=== PATIENT | female | born 1970 | race Caucasian/White ===

== ENCOUNTER 2022-12-12 05:04 | Observation (INO) ==
--- NOTE | 2022-11-20 12:58 | PAT Medication Instructions ---
Medication Instructions Date of Service November 20, 2022 Home Medications Medication Instructions Recorded CPAP Supplies #1 ea 02/22/19 CPAP Machine #1 ea 03/10/19 losartan 25 mg tablet 25 mg PO DAILY albuterol sulfate 2.5 mg/3 mL (0.083 %) solution for nebulization 2.5 mg inhalation Q4H PRN shortness of breath or wheezing albuterol sulfate 90 mcg/actuation aerosol inhaler 2 puffs inhalation Q4H PRN shortness of breath or wheezing cholecalciferol (vitamin D3) 1,250 mcg (50,000 unit) capsule 50,000 unit PO MONTHLY diltiazem HCl 120 mg capsule,extended release 24 hr (Cartia XT) 120 mg PO DAILY fluticasone fur. 200 mcg-umeclid 62.5 mcg-vilant 25 mcg inhalat.powder (Trelegy Ellipta) 1 inh inhalation DAILY paroxetine HCl 30 mg tablet 30 mg PO QAM pravastatin 40 mg tablet 40 mg PO QAM DO NOT take the morning of surgery losartan 25 mg tablet 25 mg PO DAILY cholecalciferol (vitamin D3) 1,250 mcg (50,000 unit) capsule 50,000 unit PO MONTHLY Take morning of surgery With a small sip of water, OTHERWISE NOTHING TO EAT OR DRINK AFTER MIDNIGHT: albuterol sulfate 2.5 mg/3 mL (0.083 %) solution for nebulization 2.5 mg inhala tion Q4H PRN shortness of breath or wheezing (if needed) albuterol sulfate 90 mcg/actuation aerosol inhaler 2 puffs inhalation Q4H PRN shortness of breath or wheezing (use if needed; please bring rescue inhaler with you to hospital day of surgery if possible) diltiazem HCl 120 mg capsule,extended release 24 hr (Cartia XT) 120 mg PO DAILY fluticasone fur. 200 mcg-umeclid 62.5 mcg-vilant 25 mcg inhalat.powder (Trelegy Ellipta) 1 inh inhalation DAILY paroxetine HCl 30 mg tablet 30 mg PO QAM pravastatin 40 mg tablet 40 mg PO QAM Take evening before surgery albuterol sulfate 2.5 mg/3 mL (0.083 %) solution for nebulization 2.5 mg inhalation Q4H PRN shortness of breath or wheezing (if needed) albuterol sulfate 90 mcg/actuation aerosol inhaler 2 puffs inhalation Q4H PRN shortness of breath or wheezing (if needed) Other Notes If you have any questions please call us at [phone] or [phone] or [phone] or [phone]
--- NOTE | 2022-11-27 09:26 | Anesthesiology Consultation ---
Date of Service November 27, 2022 Assessment & Plan (1) Encounter for pre-operative examination: - Infectious disease screening: Per assessment on 11/27/22: No known infectious disease contacts or current infectious disease symptoms. No noted Covid positive test result in past 90 days. - Outpatient joint assessment: Pt currently scheduled for inpatient pathway. If surgeon requests review for outpatient joint pathway, patient is not recommended candidate for outpatient joint program from anesthesia standpoint. - Cardiology visit (05/30/22): " Patient presents for evaluation of hypertens ion.. She reports nonprogressive functional class II SOB and fatigue.. Continue current meds.. Diet and exercise were discussed with patient.. Check BP on regular basis.. Encouraged to join an exercise and weight loss program" - Abnormal CBC: Preop labs performed 11/27/22 note absolute lymphocytosis. Per lab report, "Absolute lymphocytosis in patient >50 years old. If persistent, consider evaluation for CLL (flow cytometry)" > Note written to PCP regarding abnormal preop labs- Awaiting response ([facility]). Chart Review Chart Review: Patient seen in Pre Admission Testing Teaching & Discussion Pre-Anesthesia Teaching/Discussion Notes: Instructed NPO after midnight before surgery,except medications with 15 cc of water. Medication instructions provided according to the PAT guidelines. History Surgery Operation Date: 12/12/22 10:40 Proposed Procedures p Left Total Hip Arthroplasty - Khadar Mccabe MD Height/Weight Height: 5 ft 4 in Weight: 111.8 kg Allergies Allergy/AdvReac Type Severity Reaction Status Date / Time codeine Allergy Mild Abdominal Verified 11/25/22 15:31 cramps isosorbide Allergy Unknown Headache, Verified 11/25/22 15:31 nausea Medications Home Medications Medication Instructions Recorded Confirmed Last Taken CPAP Supplies #1 ea 02/22/19 09/04/22 Unknown losartan 25 mg tablet 25 mg PO DAILY #30 tabs 02/28/19 11/20/22 Unknown CPAP Machine #1 ea 03/10/19 09/04/22 Unknown albuterol sulfate 2.5 mg/3 mL 2.5 mg inhalation Q4H PRN 05/22/19 11/20/22 Unknown (0.083 %) solution for nebulization shortness of breath or wheezing albuterol sulfate 90 mcg/actuation 2 puffs inhalation Q4H PRN 05/22/19 11/20/22 Unknown aerosol inhaler shortness of breath or wheezing cholecalciferol (vitamin D3) 1,250 50,000 unit PO MONTHLY 07/03/22 11/20/22 Unknown mcg (50,000 unit) capsule diltiazem HCl 120 mg 120 mg PO DAILY 07/03/22 11/20/22 Unknown capsule,extended release 24 hr (Cartia XT) fluticasone fur. 200 mcg-umeclid 1 inh inhalation DAILY 07/03/22 11/20/22 Unknown 62.5 mcg-vilant 25 mcg inhalat.powder (Trelegy Ellipta) paroxetine HCl 30 mg tablet 30 mg PO QAM 11/20/22 11/20/22 Unknown pravastatin 40 mg tablet 40 mg PO QAM 11/20/22 11/20/22 Unknown Past Medical History Medical History Allergic rhinitis Anxiety Arthritis Arthritis Following with [facility], last visit 08/2022- per visit, remote hx no chio of rheumatoid arthritis but "Her current features of predominantly DIP disease is consistent with osteoarthritis. I do not identify pronounced synovitis or effusions that would be consistent with active inflammatory arthritis such as rheumatoid" Arthritis of left hip Asthma COPD (chronic obstructive pulmonary disease) Environmental allergies History of COVID-2020- sore throat, runny nose; resolved HTN (hypertension) Hyperlipidemia Morbid obesity Osteoarthritis Sleep apnea No device Exercise / Class Metabolic Activity III < 4 Walking/Shop/Light housework Past Family History Family History Father Cardiac disorder Other Raynaud's phenomenon Rheumatoid arthritis Past Surgical History Surgical History History of cardiac cath 2014- no stents Follows with Dr. Kennedy History of ear surgery History of endometrial ablation History of esophagogastroduodenoscopy (EGD) Hx of colonoscopy Nausea and vomiting after administration of anesthetic agent Past Anesthesia History No Hx of Anesthesia Complications and No Family Hx of Anesthesia Complications History of PONV History of PONV and Hx of Motion Sickness Social History Smoking Status: Former smoker Do You Dip or Chew Tobacco: No Smoking End Date: Quit 1996 Hx Alcohol Use: Yes alcohol intake frequency: holidays/special occasions only Hx Substance Use: No substance use type: does not use Review of Systems Patient denies chest pain, shortness of breath, fever, chills, cough, wheezing, palpitations. Physical Exam Vital Signs VITALS BP 131/80 P 62 TEMP 98.1 SP02 97%RA RESP 16 PHYSICAL Full cervical extension range of motion. Full TMJ range of motion. TMD 4 finger breaths Mallampati Score 3 Dentition: Right upper side missing Lungs: clear throughout to auscultation Cardiac: regular rate and rhythm, no murmurs noted Spine: normal Carotid arteries: negative bruit Extremities: no LE edema thick neck Lab Results Anesthesia Preop Results Results Anesthesia Widget: WBC 13.89 K/ul (4.8-10.8) H 11/27/22 Hgb 12.7 g/dl (12.0-16.0) 11/27/22 Hct 40.3 % (37.0-47.0) 11/27/22 Plt 267 K/uL (130-400) 11/27/22 Na 139 mmol/L (136-145) 11/27/22 K 3.8 mmol/L (3.5-5.1) 11/27/22 Cl 105 mmol/L (98-107) 11/27/22 CO2 30 mmol/L (21-32) 11/27/22 BUN 25 mg/dl (6-23) H 11/27/22 Creat 0.76 mg/dl (0.6-1.2) 11/27/22 Glucose Level 89 mg/dl (70-99(Fasting)) 11/27/22 PT 10.5 Seconds (9.0-12.0) 11/27/22 PTT 23.6 Seconds (21.0-31.0) 11/27/22 INR 1.0 (0.9-1.1) 11/27/22 Blood Type O Positive 11/27/22 Antibody Screen NEGATIVE 11/27/22 Testing Electrocardiogram Date: 11/27/22 SB at 57bpm. NS TWA. Chest X-Ray Date: 11/27/22 FINDINGS: Cardiac silhouette is normal in size. No pleural effusions. No pneumothorax. Small linear scarlike density within the lingula best seen on the lateral view. Otherwise, lungs are clear. Mild degenerative changes within the thoracic spine. IMPRESSION: No acute process. Echocardiogram Date: 10/01/21 EF 50-55%. Mild LAE and LV dilatation. Normal RA and RV size. LV systolic function is normal. No wall motion abnormalities. Diastolic dysfunction. Mild aortic and mitral valve sclerosis. Trace MR/TR/PI. Other Testing 24 hour hospital monitor Date: 10/01/21 Predominant rhythm is normal sinus rhythm with an average heart rate of 71 bpm (range 47 to 101 bpm). AV conduction was normal. No pauses over 2.0 seconds. Intraventricular conduction was normal. Rare PACs. Rare PVCs. There were NST changes noted. Patient did not note any symptoms during the monitoring period.
[2022-12-12] MEDS ORDERED: ACETAMINOPHEN 500 MG TAB PO SCH (06:00)
[2022-12-12] MEDS ORDERED: ceFAZolin 2000MG 2,000 MG/15 ML SYR IV SCH (06:00)
[2022-12-12] MEDS ORDERED: CeleBREX 200 MG CAP PO SCH (06:00)
[2022-12-12] MEDS ORDERED: METOCLOPRAMIDE HCL 10 MG TABLET PO SCH (06:00)
[2022-12-12] MEDS ORDERED: TRANEXAMIC ACID 1,000 MG **IV Pre-op IV SCH (06:00)
[2022-12-12] MEDS ORDERED: Scopolamine 1 MG TDSY TD SCH (06:00)
[2022-12-12] MEDS ORDERED: FAMOTIDINE 20 MG TAB PO SCH (06:00)
[2022-12-12] MEDS ORDERED: dexAMETHasone**PF** 10 MG/ML VIAL IV SCH (06:00)
[2022-12-12] MEDS ORDERED: LR 60ML/HR IV SCH (06:00)
[2022-12-12] MEDS ORDERED: LR 500ML BOLUS, THEN 15ML/HR IV SCH (06:00)
[2022-12-12] MEDS ORDERED: BUPIVACAINE 0.5 % 5 MG/1 ML PF 10ML VIAL ONE (06:24)
[2022-12-12] MEDS ORDERED: BUPIVACAINE/EPINEPHRINE 0.5% MPF 1:200,000 30 ML VIAL ONE (06:32)
[2022-12-12] MEDS ORDERED: PROPOFOL IV EMULSION 10 MG/ML 20 ML VIAL IV ONE ×2 (06:37→08:08)
[2022-12-12] MEDS ORDERED: MIDAZOLAM HCL 1 MG/ML 2ML VIAL ONE (06:37)
[2022-12-12] MEDS ORDERED: LIDOCAINE 2% 2 ML VIAL/AMP(20MG/ML) INFIL ONE (06:37)
[2022-12-12] MEDS ORDERED: ONDANSETRON INJ 2 MG/ML 2 ML VIAL ONE (06:37)
[2022-12-12] MEDS ORDERED: MoRPHine SULFATE PF 1 MG/ML 10 ML AMP/VIAL ONE (06:37)
--- NOTE | 2022-12-12 06:46 | History & Physical Bridge Note ---
Date of Service December 12, 2022 History & Physical Bridge Note I have examined the patient, reviewed the History & Physical and in the interval since the performance of the History & Physical I have noted the following changes of clinical significance: no changes noted
[2022-12-12] MEDS ORDERED: KETAMINE 50 MG/5 ML SYRINGE ONE (07:05)
[2022-12-12] MEDS ORDERED: ATROPINE SULFATE 0.1 MG/ML 10ML SYR IV PRN (08:04)
[2022-12-12] MEDS ORDERED: ePHEDrine sulfate 50 MG/ML AMP IV PRN ×2 (08:04→09:20)
--- NOTE | 2022-12-12 08:53 | Operative Report ---
PG Post Operative Report Pre & Post Diagnosis Operation Date: 12/12/22 07:00 Pre-Op Diagnosis: Left Hip Advanced Degenerative Joint Disease Post-Op Diagnosis: Left Hip Advanced Degenerative Joint Disease I identified the patient and participated in the time-out.: Yes Procedure Operation Date: 12/12/22 07:00 Actual Procedures p Left Total Hip Arthroplasty--Uncemented(Left) - Khadar Mccabe MD Surgeon Khadar Mccabe MD Can Inspector Kaz Dailey PA-C Estimated Blood Loss 200 Findings Consistent with Post-Op Diagnosis Operative findings were advanced left hip DJD. She had extensive grade 4 [id number] disease of the femoral head and acetabulum. Not much in the way of osteophytes. Moderate-sized joint effusion. Very large soft tissue envelope around her hip area. Specimens Left femoral head sent for pathology Anesthesia Type Spinal MAC Complications none Disposition Accompanied Patient To Recovery: No Indications Patient is a 52-year-old female said a several year history of increasing left hip pain discomfort describes gotten worse over time. Is been through extensive conservative treatment became less successful over time. X-rays show advanced and progressive hip arthritis. She elected proceed with total hip arthroplasty. Description of Procedure Operative implants consist of: 1 Biomet G7 size 52 mm acetabular shell. 2. [place] eliminator. 3. Highly cross-linked polyethylene liner with a 52 mm outer diam and 36 mm inner diameter. 4. 6.5 cancellous acetabular screws 1 at 35 mm in length by 20 mm length. 5. DePuy Karaya size 10 KLA femoral stem. 6. +5/36 mm ceramic articular ball. The patient was taken the operating, identified, and placed on the operating table supine position architectures were properly padded. IV antibiotics tried by anesthesia team. Spinal anesthetic had been implemented holding area. Reed catheter was placed in sterile fashion. Patient then placed in the right lateral decubitus position. Next a roll was placed. A Stulberg hip positioner was used for positioning. The left hip and leg were then prepped and draped in usual sterile fashion. A posterolateral approach to the left hip was then performed to a curvilinear incision centered over the greater trochanter. Sharp dissection Through subcutaneous tissue down to the IT band gluteal fascia. The subcutaneous tissue layer was very thick. The IT band gluteal fascia incised longitudinally in line with skin incision. The underlying greater trochanteric bursa was excised. The piriformis and external rotators along with the posterior hip joint capsule were then released and the posterior aspect hip as a single layer. Great care was taken throughout the procedure. The sciatic nerve at all times. Hip was internally rotated and dislocated. Femoral neck osteotomy cut was made with Final Cut about 10 mm above the lesser trochanter. Femoral head was removed and sent for pathology. The femur was retracted anteriorly. Attention drawn the acetabulum. The acetabulum was excised. The pulmonary fat was excised. Sequential reaming the acetabular was then performed again with a size 43 and progressing up to 49. I did ream some with a 50 reamer. We then placed a 52 mm Biomet G7 acetabular shell in about 40 degrees lateral opening and 20 degrees of anteversion. We fixed with two 6.5 screws. A trial liner was placed. Attention drawn the femur. The proximal femur was entered with a [employer] cutter followed by canal finder. Then broached beginning size 8 and progressing up to 10. She got excellent fit of the tendon. I trialed the hip and the +5 articular ball provided appropriate stability and full extension X rotation and flexion to 90 degrees internal Tatian over 50 degrees. There is still unilobar soft tissue laxity. I did not feel like we probably lengthen her a little bit but she was little bit short to start out. Leg lengths seem equal. We elect to place these implants. All trial implants were removed. [place] eliminator was placed but highly cross- linked polyethylene liner was placed. A +10 KLA femoral stem was impacted in position. +5/36 mm ceramic articular ball was placed. Hip was located once again found to be stable. Attention drawn to closing. Wounds irrigated cosigns pulsatile lavage solution. I did inject locally with 60 cc of half percent Marcaine with epinephrine. The posterior capsule and external rotators were then repaired through drill in the posterior trochanter with #2 Tycron suture. The IT band gluteal fascia then closed as a single layer with #1 PDS suture in a running fashion with subcutaneous tissue then closed with 2 layers the deep layer #2 Vicryl suture and subcutaneous tissues with 2 Dexon suture in a buried interrupted fashion. Skin was closed skin leta. Leg was then cleaned and dried. A Prevena VAC dressing was applied due to the very thick soft tissue envelope. Patient then transferred to the recovery room in stable condition. Patient tolerated the procedure well and there were no complications. Kaz Dailey, my physician fws faculty assistant, was present for the entire procedure. His assistance was essential and required for appropriate patient positioning, prepping and draping, surgical exposure, performing the technical details of the operation, placement the implants, closure of the wound, and placement of the sterile bandage. I attest to the content of the Intraoperative Record and any orders documented therein. Any exceptions are noted below.
[2022-12-12] MEDS ORDERED: diphenhydrAMINE 50 MG/ML VIAL IV PRN (09:20)
[2022-12-12] MEDS ORDERED: ONDANSETRON INJ 2 MG/ML 2 ML VIAL IV PRN ×2 (09:20→10:56)
[2022-12-12] MEDS ORDERED: LACTATED RINGER'S 500 ML IV PRN (09:20)
[2022-12-12] MEDS ORDERED: PROMETHAZINE HCL 25 MG in SODIUM CHLORIDE 0.9% 50 ML IV PRN (09:20)
[2022-12-12] MEDS ORDERED: NALOXONE HCL 1 MG in SODIUM CHLORIDE 0.9% 1,000 ML IV PRN (09:20)
[2022-12-12] MEDS ORDERED: MoRPHine SULFATE PF 1 MG/ML 10 ML AMP/VIAL INT SPINAL ONE (09:20)
[2022-12-12] MEDS ORDERED: NALBUPHINE HCL INJ 10 MG/ML AMP IV PRN (09:20)
[2022-12-12] MEDS ORDERED: NALOXONE HCL 0.4 MG/1 ML VIAL/CARP IV PRN ×2 (09:20→10:56)
[2022-12-12] MEDS ORDERED: NALOXONE HCL 0.08 MG in SYRINGE 1.8 ML IV PRN (09:20)
--- NOTE | 2022-12-12 09:23 | Anesthesiology Progress Note ---
Date of Service December 12, 2022 Anesthesia Post Procedure Vital Signs Vital Signs: Temp Pulse Resp BP Pulse Ox O2 Del Method O2 Flow Rate 12/12/22 09:00 65 14 109/51 L 100 Oxymask 1 12/12/22 09:10 36.5 C 70 13 105/82 93 Room Air 12/12/22 08:50 75 16 104/60 98 Oxymask 3 12/12/22 08:40 36.6 C 81 12 105/63 95 Oxymask 5 12/12/22 05:32 36.6 C 66 20 158/84 H 99 Room Air Pain Intensity Left Hip: Pain Intensity: 0 Transfer of Care Handoff Completed per policy Notes Mental Status: alert / awake / arousable Patient Amnestic to Procedure: Yes Nausea / Vomiting: adequately controlled Pain: adequately controlled Airway Patency, RR, SpO2: stable & adequate BP & HR: stable & adequate Hydration State: stable & adequate Neuraxial Anesthesia: was administered and sensory block is resolving Anesthetic Complications: no major complications apparent
[2022-12-12] MEDS ORDERED: SODIUM CHLORIDE 0.9% 1,000 ML IV SCH (09:30)
[2022-12-12] MEDS ORDERED: NO NARCOTICS OR SEDATIVES SCH (09:30)
[2022-12-12] MEDS ORDERED: DC INTRASPINAL MORPHINE SCH (09:30)
[2022-12-12] MEDS ORDERED: ALBUTEROL HFA 8 GM INHALER INH PRN (10:56)
[2022-12-12] MEDS ORDERED: SENNA 8.6 MG TAB PO SCH ×2 (10:56→21:00)
[2022-12-12] MEDS ORDERED: bisacodyL 10 MG SUPP PR PRN (10:56)
[2022-12-12] MEDS ORDERED: METOCLOPRAMIDE HCL INJ 5 MG/ML 2 ML VIAL IV PRN (10:56)
[2022-12-12] MEDS ORDERED: ALUMINUM/MAGNESIUM SUSP 30 ML UDC PO PRN (10:56)
[2022-12-12] MEDS ORDERED: ALBUTEROL 0.083% NEBU SOLN 3 ML VIAL INH PRN (10:56)
[2022-12-12] MEDS ORDERED: MAGNESIUM HYDROXIDE SUSP 30 ML UDC PO PRN (10:56)
[2022-12-12] MEDS: DOCUSATE SODIUM 100 MG CAP PO SCH ×2 (11:34→19:58)
[2022-12-12] MEDS: MULTIVITAMIN TAB PO SCH (11:34)
[2022-12-12] MEDS: KETOROLAC 30 MG/ML VIAL IV SCH ×3 (11:36→23:36)
[2022-12-12] MEDS: ASPIRIN 81 MG ECTAB PO SCH ×2 (11:41→20:00)
[2022-12-12] MEDS: PRAVASTATIN SOD 40 MG TAB PO SCH (11:43)
[2022-12-12] MEDS: PARoxetine HCL 20 MG TAB PO SCH (11:43)
[2022-12-12] MEDS: dilTIAZem HCL 120 MG CAPCR PO SCH (11:44)
[2022-12-12] MEDS: LOSARTAN POTASSIUM 25 MG TAB PO SCH (11:44)
[2022-12-12] MEDS ORDERED: ERGOCALCIFEROL 50,000 UNITS 1250 MCG CAP PO SCH (12:00)
--- NOTE | 2022-12-12 13:05 | XRay Report ---
SINGLE VIEW PELVIS; SINGLE VIEW LEFT HIP CLINICAL HISTORY: Postoperative examination. FINDINGS: An AP portable view of the hips and pelvis with a crosstable lateral portable view of the l eft hip are obtained. Comparison is made to study dated 07/03/2022. A bipolar left hip arthroplasty is in near-anatomic alignment. At least 2 cortical lag screws transfix the acetabular cup. No acute fra cture is identified. There are expected postoperative changes overlying the left hip including skin c lips, subcutaneous gas, and soft tissue swelling. IMPRESSION: Expected postoperative findings status post left hip arthroplasty. No acute fracture is s een. ACT 112: Negative or not required by law. Electronically signed by: Idris Arthur M.D. 12/12/2022 1:03 PM
[2022-12-12] MEDS: ACETAMINOPHEN 500 MG TAB PO SCH ×2 (14:34→19:58)
[2022-12-12] MEDS: ceFAZolin 2000MG 2,000 MG/15 ML SYR IV SCH ×2 (14:36→23:32)
[2022-12-12] MEDS: SODIUM CHLORIDE 0.9% 1,000 ML IV SCH ×2 (14:45→19:59)
[2022-12-12] MEDS ORDERED: TRANEXAMIC ACID / 0.7% NACL 1,000 MG/100 ML BAG IV SCH (14:45)
[2022-12-12] MEDS: Scopolamine CHECK PATCH PLACEMENT SCH ×2 (15:36→23:34)
[2022-12-12] MEDS: ASCORBIC ACID 500 MG TAB PO SCH (17:09)
[2022-12-13] MEDS ORDERED: HYDROmorphone INJ 0.5 MG/0.5 ML SYR IV PRN (03:20)
[2022-12-13] MEDS ORDERED: traMADol HCL 50 MG TABLET PO PRN (03:20)
[2022-12-13 06:18] LABS: Basophils # (auto) 0.01 K/uL (0.00-0.20); Basophils % (auto) 0.1 %; Hematocrit (blood only) 34.5 % (37.0-47.0); Hemoglobin 11.3 g/dl (12.0-16.0); Immature Granulocytes # (auto) 0.09 K/uL (0.01-0.20); Immature Granulocytes % (auto) 0.7 %; Lymphocytes # (auto) 1.22 K/uL (1.20-3.40); Lymphocytes % (auto) 9.6 %; Mean Corpuscular Hemoglobin 30.3 pg (25.0-34.0); Mean Corpuscular Hgb Conc 32.8 g/dL (32.0-36.0); Mean Corpuscular Volume 92.5 fL (80.0-100.0); Mean Platelet Volume 10.4 fL (9.4-12.4); Monocytes # (auto) 0.98 K/uL (0.11-0.59); Monocytes % (auto) 7.7 %; Neutrophils # (auto) 10.46 K/uL (1.40-6.50); Neutrophils % (auto) 81.9 %; Platelet Count 212 K/uL (130-400); RDW Coefficient of Variation 12.9 % (11.5-14.5); RDW Standard Deviation 43.8 fL (36.4-46.3); Red Blood Count 3.73 M/uL (4.20-5.40); White Blood Count 12.76 K/ul (4.8-10.8)
[2022-12-13] MEDS: KETOROLAC 30 MG/ML VIAL IV SCH (06:38)
[2022-12-13 07:04] LABS: BUN Creatinine Ratio 25.4 (10-20); Creatinine Clr Calc Pharmacy 114.2 ml/min; Est GFR (African American) 114.3 ml/min; Est GFR (Non-African American) 98.6 ml/min; Potassium 4.2 mmol/L (3.5-5.1)
--- NOTE | 2022-12-13 07:15 | Surgery Progress Note ---
Date of Service December 13, 2022 Assessment & Plan (1) Status post left hip replacement: Plan: 52-year-old female postop day 1 from left hip replacement doing well. Pain is controlled. Hips located. She is neurologically intact. Plan: 1. DVT prophylaxis including thigh-high teds, SCDs, aspirin twice a day. 2. PT OT. Weight-bear as tired. Left total hip protocol. 3. Pain control doing well with current pain regimen. 4. Disposition plan to discharge home with some home health today after PT Admission and Anticipated Discharge Date Admission Date: December 12, 2022 Subjective 52-year-old female postop day 1 from left total hip placement. She is doing well. That she has she had the best night sleep has had in a while. Pains controlled. No chest pain or shortness of breath. Not feeling dizzy or lightheaded. Feels like she is ready to go home. Physical Exam Physical Exam: Physical examination reveals a pleasant middle-age female. She is lying in bed looks quite comfortable. She awake alert and oriented. Examination left hip reveals leg lengths equal. Zara tract dressing is in place. Thigh is soft and supple. She is neurologically intact. Respiratory: normal respiratory effort, lungs clear to auscultation Cardiovascular: RRR, no murmur, no edema Gastrointestinal (Abdomen): normal bowel sounds, soft, nontender, no hepatosplenomegaly Results & Data Vital Signs (Past 12 Hours) Vital Signs Temp Pulse Resp BP Pulse Ox O2 Del Method 12/13/22 03:13 36.5 C 60 18 138/69 97 Room Air 12/13/22 00:33 17 96 12/12/22 22:18 16 96 12/12/22 21:20 18 96 12/12/22 23:39 17 95 12/12/22 23:14 36.8 C 82 16 145/69 H 97 Room Air 12/12/22 19:52 18 95 12/12/22 19:37 36.4 C L 76 18 116/75 95 Room Air Laboratory Results Hemoglobin is 11.3. Mackert 34.5. Electrolytes are stable. PG Care Time/CCT Total # of Minutes Spent Total Time Spent with Patient: Total time spent is greater than 50% in coordination of care (as documented) at patient's floor/unit and/or counseling patient: Coding Level of Care Code 67365 Post Operative Follow-Up Diagnoses Status post left hip replacement Z96.642
[2022-12-13] MEDS ORDERED: dexAMETHasone 10 MG in SYRINGE 0 ML IV SCH (08:00)
[2022-12-13] MEDS: Scopolamine CHECK PATCH PLACEMENT SCH (08:25)
[2022-12-13] MEDS: dilTIAZem HCL 120 MG CAPCR PO SCH (08:26)
[2022-12-13] MEDS: LOSARTAN POTASSIUM 25 MG TAB PO SCH (08:27)
[2022-12-13] MEDS: ACETAMINOPHEN 500 MG TAB PO SCH (08:29)
[2022-12-13] MEDS: DOCUSATE SODIUM 100 MG CAP PO SCH (08:29)
[2022-12-13] MEDS: ASCORBIC ACID 500 MG TAB PO SCH (08:29)
[2022-12-13] MEDS: ASPIRIN 81 MG ECTAB PO SCH (08:29)
[2022-12-13] MEDS: PRAVASTATIN SOD 40 MG TAB PO SCH (08:30)
[2022-12-13] MEDS: MULTIVITAMIN TAB PO SCH (08:30)
[2022-12-13] MEDS: PARoxetine HCL 20 MG TAB PO SCH (08:30)
== END 2022-12-13 12:19 | disposition home health service (06) ==
LOC: ASU 05:04 → PACUINP 05:04 → 3E 12:59